=== PATIENT | male | born 1995 | race African-American/Black ===

== ENCOUNTER 2019-11-16 15:22 | Emergency (ER) | payer OTHER ==
[~2019-11-16] VITALS: Ht 188 cm; Wt 88.5 kg
[2019-11-16 16:09] LABS: HEMATOCRIT 45.7 % (42.0-52.0); HEMOGLOBIN 15.4 gm/dL (14.0-18.0); MCH 30.1 pg (26.0-34.0); MCHC 33.8 g/dL (28.0-37.0); MCV 89.1 fL (80.0-100.0); PLATELET COUNT 150 thou/uL (150-400); RBC 5.13 mil/uL (4.50-6.00); RDW 12.7 % (10.5-14.5)
[2019-11-16 16:22] LABS: AMP/METHAMP Negative (Negative); BARBITURATES Negative (Negative); BENZODIAZEPINES Negative (Negative); COCAINE Negative (Negative); METHADONE Negative (Negative); OPIATES Negative (Negative); PCP Negative (Negative)
[2019-11-16 16:27] LABS: CALCIUM 8.4 mg/dL (8.5-10.1); CREATININE 0.9 mg/dL (0.7-1.3)
[2019-11-16 16:30] LABS: ALBUMIN 3.7 g/dL (3.4-5.0); TOTAL BILIRUBIN 0.3 mg/dL (<0.1-1.0); TOTAL PROTEIN 7.1 g/dL (6.4-8.2)
[2019-11-16 16:34] LABS: HCO3 21.8 mmol/L (22.0-26.0); PCO2 31.4 mmHg (35.0-45.0); PO2 122.8 mmHg (80.0-100.0); sO2 98.6 % (92.0-98.0)
[2019-11-16 16:51] LABS: ABSOLUTE NEUTROPHILS 0.7 thou/uL (1.4-8.2); ATYPICAL LYMPHS 6 %
[2019-11-16 17:04] LABS: URINE BILIRUBIN NEGATIVE (Negative); URINE BLOOD NEGATIVE (Negative); URINE CLARITY CLEAR; URINE COLOR YELLOW; URINE GLUCOSE-RANDOM* NEGATIVE (Negative); URINE KETONES NEGATIVE (Negative); URINE LEUKOCYTES-REFLEX NEGATIVE (Negative); URINE NITRITE-REFLEX NEGATIVE (Negative); URINE PROTEIN (DIPSTICK) NEGATIVE (Negative); URINE SPECIFIC GRAVITY 1.015 (1.005-1.035); URINE UROBILINOGEN 0.2 E.U./dl (0.2-1.0)
[2019-11-16 17:56] VITALS: BP 103/61
== END 2019-11-16 18:02 | disposition home or self-care (01) ==
LOC: ER 15:22 → EDBD 15:22 → ER 18:02
PROVIDERS: Physician Assistant
DX: L29.9 Pruritus, unspecified (principal); R06.02 Shortness of breath; R05 Cough; R22.41 Localized swelling, mass and lump, right lower limb; H57.89 Other specified disorders of eye and adnexa; R52 Pain, unspecified; F17.210 Nicotine dependence, cigarettes, uncomplicated